=== PATIENT | male | born 1980 | race Caucasian/White ===

== ENCOUNTER 2019-01-16 09:28 | Emergency (ER) | payer OTHER ==
[~2019-01-16] VITALS: Ht 188 cm; Wt 115.2 kg
[2019-01-16 09:57] VITALS: BP 142/79; Ht 188 cm; Wt 115.2 kg
== END 2019-01-16 11:20 | disposition home or self-care (01) ==
LOC: ED 09:28
DX: J02.9 Acute pharyngitis, unspecified (principal); R09.82 Postnasal drip; R05 Cough; M10.9 Gout, unspecified; Z90.49 Acquired absence of other specified parts of digestive tract; Z98.890 Other specified postprocedural states
CPT/HCPCS: J0696; J1100

== ENCOUNTER 2019-06-29 08:21 | Emergency (ER) | payer BC ==
[~2019-06-29] VITALS: Ht 188 cm; Wt 110.7 kg
[2019-06-29 08:30] VITALS: BP 132/94; Ht 188 cm; Wt 110.7 kg
== END 2019-06-29 09:15 | disposition home or self-care (01) ==
LOC: ED 08:21
DX: M10.061 Idiopathic gout, right knee (principal); J30.9 Allergic rhinitis, unspecified; R03.0 Elevated blood-pressure reading, without diagnosis of hypertension; Z98.890 Other specified postprocedural states; Z90.49 Acquired absence of other specified parts of digestive tract

== ENCOUNTER 2020-04-27 15:32 | Emergency (ER) | payer BC, SELFPAY ==
[~2020-04-27] VITALS: Ht 185.4 cm; Wt 113.4 kg
[2020-04-27 16:14] VITALS: Ht 185.4 cm; Wt 113.4 kg
[2020-04-27 17:30] VITALS: BP 125/76
== END 2020-04-27 17:30 | disposition home or self-care (01) ==
LOC: ED 15:32
DX: R06.00 Dyspnea, unspecified (principal); R06.02 Shortness of breath; M79.10 Myalgia, unspecified site; Z20.828 Contact with and (suspected) exposure to other viral communicable diseases
CPT/HCPCS: Q0092; U0003-CS